=== PATIENT | female | born 1945 | race Caucasian/White ===

== ENCOUNTER → 2017-09-14 | Outpatient (CLI) | payer OTHER ==
[2017-09-14 12:35] LABS: BASO % 0.5 % (0.0-1.0); EOS # 0.3 10^3/uL (0.0-0.50); EOS % 4.2 % (0.0-3.0); HEMATOCRIT 37.8 % (36.0-47.0); HEMOGLOBIN 12.3 g/dl (12.0-15.5); IMMATURE GRANULOCYTE % 0.3 % (0-3.0); LYMPH # 2.5 10^3/uL (1.5-4.5); LYMPH % 32.4 % (24.0-44.0); MEAN CORPUSCULAR HEMOGLOBIN 30.1 pg (27.0-33.0); MEAN CORPUSCULAR HGB CONC 32.5 g/dl (32.0-36.5); MEAN CORPUSCULAR VOLUME 92.6 fl (80.0-96.0); MONO # 0.7 10^3/uL (0.0-0.8); MONO % 9.1 % (0.0-5.0); NEUTROPHILS # 4.2 10^3/uL (1.8-7.7); NEUTROPHILS % 53.5 % (36.0-66.0); PLATELET COUNT, AUTOMATED 261 10^3/uL (150-450); RED BLOOD COUNT 4.08 10^6/uL (4.00-5.40); RED CELL DISTRIBUTION WIDTH 12.5 % (11.5-14.5); WHITE BLOOD COUNT 7.8 10^3/uL (4.0-10.0)
== END ==
LOC: M ADAMS 10:21
DX: J20.9 Acute bronchitis, unspecified (principal)
CPT/HCPCS: 85025

== ENCOUNTER → 2019-07-08 | Outpatient (REF) | payer MEDICARE ==
[2019-07-08 12:55] LABS: ALBUMIN 3.8 GM/DL (3.2-5.2); ALT/SGPT 19 U/L (12-78); BILIRUBIN,TOTAL 0.5 MG/DL (0.2-1.0); BLOOD UREA NITROGEN 11 MG/DL (7-18); CARBON DIOXIDE LEVEL 29 MEQ/L (21-32); CHLORIDE LEVEL 104 MEQ/L (98-107); CHOLESTEROL LEVEL 197 MG/DL (<200); CHOLESTEROL RISK RATIO 3.862 (<5); CREATININE FOR GFR 0.57 MG/DL (0.55-1.30); GLOMERULAR FILTRATION RATE > 60.0 (>39); GLUCOSE, FASTING 104 MG/DL (70-100); HDL CHOLESTEROL 51 MG/DL (>40); LDL CHOLESTEROL 112 MG/DL (<100); NON-HDL-C 146 MG/DL; POTASSIUM SERUM 4.5 MEQ/L (3.5-5.1); SODIUM LEVEL 139 MEQ/L (136-145); TOTAL PROTEIN 7.3 GM/DL (6.4-8.2); TRIGLYCERIDES LEVEL 171 MG/DL (<150)
[2019-07-08 13:31] LABS: HEMOGLOBIN A1c 7.1 %
== END ==
LOC: M SFHCADAM 08:59
PROVIDERS: ATTEND Physician Assistant
DX: I10 Essential (primary) hypertension (principal); E78.2 Mixed hyperlipidemia; E11.9 Type 2 diabetes mellitus without complications

== ENCOUNTER → 2019-09-26 | Outpatient (REF) | payer MEDICARE ==
[2019-09-26 17:18] LABS: HEMATOCRIT 41.4 % (36.0-47.0); HEMOGLOBIN 13.4 g/dl (12.0-15.5); MEAN CORPUSCULAR HEMOGLOBIN 31.1 pg (27.0-33.0); MEAN CORPUSCULAR HGB CONC 32.4 g/dl (32.0-36.5); MEAN CORPUSCULAR VOLUME 96.1 fl (80.0-96.0); PLATELET COUNT, AUTOMATED 202 10^3/uL (150-450); RED BLOOD COUNT 4.31 10^6/uL (4.00-5.40)
[2019-09-26 18:05] LABS: ERYTHROCYTE SEDIMENTATION RATE 22 mm/hr (0-30)
[2019-09-29 18:14] LABS: ANA (HEP2) Negative (.); Lyme Disease IgG/IgM Antibodie <0.91 ISR (0.00-0.90); Lyme Disease IgM Ab Quantitati <0.80 index (0.00-0.79)
== END ==
LOC: M SFHCLACO 14:10
PROVIDERS: ATTEND Physician Assistant
DX: M19.042 Primary osteoarthritis, left hand (principal); M19.041 Primary osteoarthritis, right hand; Z79.899 Other long term (current) drug therapy

== ENCOUNTER → 2019-09-26 | Outpatient (CLI) | payer MEDICARE ==
[~2019-09-26] MED LIST: ACET160S3 PO; CALC1TAB26 PO; CINN500C15 PO; CO Q10CA PO; D31000TA2 PO; LISI-542 PO; MAGN400C2 PO; METF-817 PO; MULTCAP PO; NAPR-885 PO
--- NOTE | 2019-09-27 07:54 | REP ---
REASON: History of osteoarthritis. PRIORS: None. Bilateral exam was performed. Four views of the right hand show asymmetric intra-digital joint space narrowing, particularly affecting the distal interphalangeal joints of digits 3 and 4. There is marginal osteophytosis involving the DIP joints and again particularly digits 3 and 4. There is no periarticular osteopenia, and there are no marginal erosions. More mild and rather symmetric appearing intra-digital joint space narrowing is seen involving the proximal interphalangeal joints of digits 2 through 5 and the interphalangeal joint of digit 1. There is no evidence of an acute fracture. There are degenerative changes seen involving the 1st carpometacarpal joint on this hand exam. Four views of the left hand were obtained and show asymmetric intra-digital joint space narrowing, particularly affecting the DIP joints and particularly the DIP joints of digits 2 and 5. Asymmetric narrowing and osteophytosis is also seen involving the DIP joint of digit 4. There are no marginal erosions, and there is no periarticular osteopenia. There is no evidence of an acute fracture. Degenerative changes are seen involving the 1st carpometacarpal joint non this hand exam. IMPRESSION: Chronic changes, as described above. Electronically Signed by Eran Kwon DO 09/27/2019 09:12 A
== END ==
LOC: M ADAMS 14:10
PROVIDERS: ATTEND Physician Assistant
DX: M19.042 Primary osteoarthritis, left hand (principal); M19.041 Primary osteoarthritis, right hand; Z79.899 Other long term (current) drug therapy

== ENCOUNTER → 2019-11-29 | Outpatient (CLI) | payer MEDICARE | LOC: M LABSMTC 10:07 | PROVIDERS: ATTEND Anesthesiology | DX: Z01.812 Encounter for preprocedural laboratory examination (principal); Z20.828 Contact with and (suspected) exposure to other viral communicable diseases | CPT/HCPCS: C9803; U0003 ==

== ENCOUNTER 2019-12-04 06:30 | Day surgery (SDC) | payer MEDICARE ==
[~2019-12-04] VITALS: Ht 160 cm; Wt 75.2 kg
[2019-12-04] MEDS ORDERED: POVIDONE-IODINE 5% OPHTH PREP SOL 30ML As Ordered ONE (06:46)
[2019-12-04] MEDS ORDERED: DUOVISC (0.50ML VISCOAT/0.55ML PROVISC) OPHTH KIT As Ordered ONE (06:47)
[2019-12-04] MEDS ORDERED: BSS IRR 500ML/OMIDRIA 4ML IRR BAG (OR ONLY) (J1097 PER ML) As Ordered ONE (06:47)
[2019-12-04] MEDS ORDERED: CEFUROXIME 1MG/0.1ML INTRACAMERAL INJ As Ordered ONE (06:47)
[2019-12-04] MEDS ORDERED: PHENYLEPHRINE 2.5% OPHTH SOL 2ML OS ONE (07:00)
[2019-12-04] MEDS ORDERED: PROPARACAINE 0.5% OPHTH SOL 15ML OS ONE (07:00)
[2019-12-04] MEDS ORDERED: TROPICAMIDE 1% OPHTH SOLN 2ML OS ONE (07:00)
[2019-12-04] MEDS ORDERED: OFLOXACIN 0.3 % (OCUFLOX) OPTH SOL 5ML OS ONE (07:00)
[2019-12-04] MEDS ORDERED: PROPARACAINE 0.5% OPHTH SOL 15ML As Ordered ONE (07:03)
[2019-12-04] MEDS ORDERED: PHENYLEPHRINE 2.5% OPHTH SOL 2ML As Ordered ONE (07:03)
[2019-12-04] MEDS ORDERED: OFLOXACIN 0.3 % (OCUFLOX) OPTH SOL 5ML As Ordered ONE (07:03)
[2019-12-04] MEDS ORDERED: TROPICAMIDE 1% OPHTH SOLN 2ML As Ordered ONE (07:04)
[2019-12-04] MEDS ORDERED: MIDAZOLAM INJ 2MG/2ML VIAL (J2250 PER 1MG) As Ordered ONE (08:06)
[2019-12-04] MEDS ORDERED: fentaNYL 100 MCG/2 ML INJECTION (J3010) As Ordered ONE (08:06)
[2019-12-04] MEDS ORDERED: ONDANSETRON 4MG/2ML VIAL As Ordered ONE (08:23)
[2019-12-04 08:45] VITALS: BP 171/79
[2019-12-04] MEDS ORDERED: ONDANSETRON 4MG/2ML VIAL IV PRN (08:45)
== END 2019-12-04 09:50 | disposition home or self-care (01) ==
LOC: M SDC 06:30
PROVIDERS: ATTEND Ophthalmology
DX: H25.12 Age-related nuclear cataract, left eye (principal); E11.9 Type 2 diabetes mellitus without complications; Z79.84 Long term (current) use of oral hypoglycemic drugs; Z79.899 Other long term (current) drug therapy
CPT/HCPCS: 66984; J1097; J2250; J2405; J3010; V2632

== ENCOUNTER → 2019-12-06 | Outpatient (CLI) | payer MEDICARE | LOC: M LABSMTC 08:27 | PROVIDERS: ATTEND Anesthesiology | DX: Z01.812 Encounter for preprocedural laboratory examination (principal); Z20.828 Contact with and (suspected) exposure to other viral communicable diseases | CPT/HCPCS: C9803; U0003 ==

== ENCOUNTER 2019-12-11 10:13 | Day surgery (SDC) | payer MEDICARE ==
[~2019-12-11] VITALS: Ht 160 cm; Wt 72.6 kg
[~2019-12-11 10:13] MED LIST changes: +BSS IRR 500ML/OMIDRIA 4ML IRR BAG (OR ONLY) (J1097 PER ML) As Ordered ONE; +CEFUROXIME 1MG/0.1ML INTRACAMERAL INJ As Ordered ONE; +DUOVISC (0.50ML VISCOAT/0.55ML PROVISC) OPHTH KIT As Ordered ONE; +OFLOXACIN 0.3 % (OCUFLOX) OPTH SOL 5ML OD ONE; +PHENYLEPHRINE 2.5% OPHTH SOL 2ML OD ONE; +POVIDONE-IODINE 5% OPHTH PREP SOL 30ML As Ordered ONE; +PROPARACAINE 0.5% OPHTH SOL 15ML OD ONE; +TROPICAMIDE 1% OPHTH SOLN 2ML OD ONE
[2019-12-11] MEDS ORDERED: SCOPOLAMINE 1MG TRANSDERMAL PATCH As Ordered ONE (11:27)
[2019-12-11] MEDS ORDERED: fentaNYL 100 MCG/2 ML INJECTION (J3010) As Ordered ONE (11:52)
[2019-12-11] MEDS ORDERED: MIDAZOLAM INJ 2MG/2ML VIAL (J2250 PER 1MG) As Ordered ONE (11:52)
[2019-12-11 12:10] VITALS: BP 122/75
[2019-12-11] MEDS ORDERED: ONDANSETRON 4MG/2ML VIAL As Ordered ONE (12:33)
[2019-12-11] MEDS ORDERED: ONDANSETRON 4MG/2ML VIAL IV PRN (12:45)
[2019-12-11] MEDS ORDERED: SCOPOLAMINE 1MG TRANSDERMAL PATCH TOP ONE (13:00)
== END 2019-12-11 12:10 | disposition home or self-care (01) ==
LOC: M SDC 10:13
PROVIDERS: ATTEND Ophthalmology
DX: H25.11 Age-related nuclear cataract, right eye (principal); E11.9 Type 2 diabetes mellitus without complications; Z79.899 Other long term (current) drug therapy; Z88.8 Allergy status to other drugs, medicaments and biological substances
CPT/HCPCS: 66984; J1097; J2250; J2405; J3010; V2632

== ENCOUNTER → 2020-01-06 | Outpatient (REF) | payer MEDICARE ==
[~2020-01-06] MED LIST changes: -BSS IRR 500ML/OMIDRIA 4ML IRR BAG (OR ONLY) (J1097 PER ML) As Ordered ONE; -CEFUROXIME 1MG/0.1ML INTRACAMERAL INJ As Ordered ONE; -DUOVISC (0.50ML VISCOAT/0.55ML PROVISC) OPHTH KIT As Ordered ONE; -OFLOXACIN 0.3 % (OCUFLOX) OPTH SOL 5ML OD ONE; -PHENYLEPHRINE 2.5% OPHTH SOL 2ML OD ONE; -POVIDONE-IODINE 5% OPHTH PREP SOL 30ML As Ordered ONE; -PROPARACAINE 0.5% OPHTH SOL 15ML OD ONE; -TROPICAMIDE 1% OPHTH SOLN 2ML OD ONE
[2020-01-06 12:52] LABS: HEMOGLOBIN A1c 5.5 %
[2020-01-06 12:58] LABS: ALBUMIN 4.2 GM/DL (3.2-5.2); ALT/SGPT 17 U/L (12-78); BILIRUBIN,TOTAL 0.4 MG/DL (0.2-1.0); BLOOD UREA NITROGEN 28 MG/DL (7-18); CALCIUM LEVEL 9.5 MG/DL (8.8-10.2); CARBON DIOXIDE LEVEL 27 MEQ/L (21-32); CHLORIDE LEVEL 107 MEQ/L (98-107); CHOLESTEROL LEVEL 203 MG/DL (<200); CHOLESTEROL RISK RATIO 4.413 (<5); CREATININE FOR GFR 0.63 MG/DL (0.55-1.30); GLOMERULAR FILTRATION RATE > 60.0 (>39); GLUCOSE, FASTING 85 MG/DL (70-100); HDL CHOLESTEROL 46 MG/DL (>40); LDL CHOLESTEROL 124 MG/DL (<100); NON-HDL-C 157 MG/DL; POTASSIUM SERUM 4.6 MEQ/L (3.5-5.1); SODIUM LEVEL 140 MEQ/L (136-145); TOTAL PROTEIN 7.2 GM/DL (6.4-8.2); TRIGLYCERIDES LEVEL 163 MG/DL (<150)
== END ==
LOC: M SFHCADAM 08:04
PROVIDERS: ATTEND Physician Assistant
DX: I10 Essential (primary) hypertension (principal); E78.2 Mixed hyperlipidemia; E11.9 Type 2 diabetes mellitus without complications

== ENCOUNTER → 2020-07-20 | Outpatient (REF) | payer MEDICARE ==
[~2020-07-20] MED LIST changes: -LISI-542 PO; +LISI-898 PO
[2020-07-20 13:31] LABS: ALBUMIN 4.1 GM/DL (3.2-5.2); ALT/SGPT 17 U/L (12-78); BILIRUBIN,TOTAL 0.5 MG/DL (0.2-1.0); BLOOD UREA NITROGEN 21 MG/DL (7-18); CALCIUM LEVEL 9.2 MG/DL (8.8-10.2); CARBON DIOXIDE LEVEL 29 MEQ/L (21-32); CHLORIDE LEVEL 104 MEQ/L (98-107); CHOLESTEROL LEVEL 210 MG/DL (<200); CHOLESTEROL RISK RATIO 3.818 (<5); CREATININE FOR GFR 0.58 MG/DL (0.55-1.30); GLOMERULAR FILTRATION RATE > 60.0 (>39); GLUCOSE, FASTING 97 MG/DL (70-100); HDL CHOLESTEROL 55 MG/DL (>40); LDL CHOLESTEROL 119 MG/DL (<100); NON-HDL-C 155 MG/DL; POTASSIUM SERUM 5.2 MEQ/L (3.5-5.1); SODIUM LEVEL 136 MEQ/L (136-145); TOTAL PROTEIN 7.4 GM/DL (6.4-8.2); TRIGLYCERIDES LEVEL 181 MG/DL (<150)
== END ==
LOC: M SFHCADAM 07:59
PROVIDERS: ATTEND Physician Assistant
DX: I10 Essential (primary) hypertension (principal); E78.2 Mixed hyperlipidemia; E11.9 Type 2 diabetes mellitus without complications

== ENCOUNTER → 2021-01-18 | Outpatient (REF) | payer MEDICARE ==
[2021-01-18 13:08] LABS: ALBUMIN 4.1 GM/DL (3.2-5.2); ALT/SGPT 19 U/L (12-78); BILIRUBIN,TOTAL 0.5 MG/DL (0.2-1.0); BLOOD UREA NITROGEN 18 MG/DL (7-18); CALCIUM LEVEL 9.7 MG/DL (8.8-10.2); CARBON DIOXIDE LEVEL 29 MEQ/L (21-32); CHLORIDE LEVEL 105 MEQ/L (98-107); CHOLESTEROL LEVEL 225 MG/DL (<200); CHOLESTEROL RISK RATIO 4.591 (<5); CREATININE FOR GFR 0.58 MG/DL (0.55-1.30); GLOMERULAR FILTRATION RATE > 60.0 (>39); GLUCOSE, FASTING 106 MG/DL (70-100); HDL CHOLESTEROL 49 MG/DL (>40); LDL CHOLESTEROL 142 MG/DL (<100); NON-HDL-C 176 MG/DL; POTASSIUM SERUM 4.6 MEQ/L (3.5-5.1); SODIUM LEVEL 139 MEQ/L (136-145); TOTAL PROTEIN 7.6 GM/DL (6.4-8.2); TRIGLYCERIDES LEVEL 168 MG/DL (<150)
== END ==
LOC: M SFHCADAM 08:13
PROVIDERS: ATTEND Physician Assistant
DX: I10 Essential (primary) hypertension (principal); E78.2 Mixed hyperlipidemia; E11.9 Type 2 diabetes mellitus without complications

== ENCOUNTER → 2021-07-26 | Outpatient (CLI) | payer MEDICARE ==
[~2021-07-26] MED LIST changes: -D31000TA2 PO; -LISI-898 PO; +LISI5TAB11 PO; +VITA100093 PO
[2021-07-26 13:34] LABS: HEMOGLOBIN A1c 6.3 %
[2021-07-26 15:09] LABS: ALBUMIN 4.4 GM/DL (3.2-5.2); ALT/SGPT 20 U/L (12-78); BILIRUBIN,TOTAL 0.4 MG/DL (0.2-1.0); BLOOD UREA NITROGEN 15 MG/DL (7-18); CARBON DIOXIDE LEVEL 23 MEQ/L (21-32); CHLORIDE LEVEL 107 MEQ/L (98-107); CHOLESTEROL LEVEL 235 MG/DL (<200); CHOLESTEROL RISK RATIO 4.519 (<5); CREATININE FOR GFR 0.72 MG/DL (0.55-1.30); GLOMERULAR FILTRATION RATE > 60.0 (>39); GLUCOSE, FASTING 96 MG/DL (70-100); HDL CHOLESTEROL 52 MG/DL (>40); LDL CHOLESTEROL 130 MG/DL (<100); NON-HDL-C 183 MG/DL; SODIUM LEVEL 138 MEQ/L (136-145); TOTAL PROTEIN 8.2 GM/DL (6.4-8.2); TRIGLYCERIDES LEVEL 266 MG/DL (<150)
== END ==
LOC: M ADAMS 08:38
PROVIDERS: ATTEND Physician Assistant
DX: E11.9 Type 2 diabetes mellitus without complications (principal); I10 Essential (primary) hypertension; E78.2 Mixed hyperlipidemia

== ENCOUNTER → 2022-01-31 | Outpatient (REF) | payer MEDICARE | LOC: M SFHCADAM 07:50 | PROVIDERS: ATTEND Family Medicine | DX: E11.9 Type 2 diabetes mellitus without complications (principal) ==

== ENCOUNTER → 2022-02-01 | Outpatient (CLI) | payer MEDICARE ==
[2022-02-01 11:10] LABS: ALT/SGPT 16 U/L (7.0-40); BILIRUBIN,TOTAL 0.5 MG/DL (0.3-1.2); BLOOD UREA NITROGEN 24 MG/DL (9-23); CALCIUM LEVEL 9.2 MG/DL (8.3-10.6); CARBON DIOXIDE LEVEL 22 MMOL/L (20-31); CHLORIDE LEVEL 105 MMOL/L (98-107); CREATININE FOR GFR 0.56 MG/DL (0.55-1.30); GLOMERULAR FILTRATION RATE > 60.0 (>39); GLUCOSE, FASTING 100 MG/DL (74-106); POTASSIUM SERUM 4.9 MMOL/L (3.5-5.1); SODIUM LEVEL 139 MMOL/L (136-145); TOTAL PROTEIN 6.9 G/DL (5.7-8.2)
[2022-02-01 11:31] LABS: HEMOGLOBIN A1c 5.8 % (4.0-6.0)
== END ==
LOC: M PLALAB 08:25
PROVIDERS: ATTEND Family Medicine
DX: E11.9 Type 2 diabetes mellitus without complications (principal)

== ENCOUNTER → 2022-04-24 | Outpatient (REF) | payer MEDICARE ==
[2022-04-24 13:30] LABS: HEMOGLOBIN A1c 5.9 % (4.0-6.0)
[2022-04-24 13:47] LABS: ALKALINE PHOSPHATASE 60 U/L (46-116); ALT/SGPT 14 U/L (7.0-40); AST/SGOT < 8 U/L (<34); BILIRUBIN,TOTAL 0.7 MG/DL (0.3-1.2); BLOOD UREA NITROGEN 31 MG/DL (9-23); CALCIUM LEVEL 9.6 MG/DL (8.3-10.6); CARBON DIOXIDE LEVEL 25 MMOL/L (20-31); CHLORIDE LEVEL 103 MMOL/L (98-107); CREATININE FOR GFR 0.59 MG/DL (0.55-1.30); GLOMERULAR FILTRATION RATE > 60.0 (>39); GLUCOSE, FASTING 95 MG/DL (74-106); POTASSIUM SERUM 4.7 MMOL/L (3.5-5.1); SODIUM LEVEL 138 MMOL/L (136-145); TOTAL PROTEIN 7.2 G/DL (5.7-8.2)
== END ==
LOC: M SFHCADAM 08:10
PROVIDERS: ATTEND Family Medicine
DX: E11.9 Type 2 diabetes mellitus without complications (principal)

== ENCOUNTER → 2022-08-08 | Outpatient (REF) | payer MEDICARE | LOC: M SFHCADAM 07:33 | PROVIDERS: ATTEND Family Medicine | DX: E11.3311 Type 2 diabetes mellitus with moderate nonproliferative diabetic retinopathy with macular edema, right eye (principal) ==

== ENCOUNTER → 2023-03-26 | Outpatient (CLI) | payer MEDICARE | LOC: M ADAMS 14:21 | PROVIDERS: ATTEND Family Medicine | DX: M47.816 Spondylosis without myelopathy or radiculopathy, lumbar region (principal); M43.17 Spondylolisthesis, lumbosacral region; M46.97 Unspecified inflammatory spondylopathy, lumbosacral region ==

== ENCOUNTER → 2023-04-16 | Outpatient (REF) | payer MEDICARE | LOC: M LAB REF 16:28 | PROVIDERS: ATTEND Student in an Organized Health Care Education/Training Program | DX: R30.0 Dysuria (principal); B96.20 Unspecified Escherichia coli [E. coli] as the cause of diseases classified elsewhere ==

== ENCOUNTER → 2023-09-18 | Outpatient (REF) | payer MEDICARE ==
[2023-09-18 13:19] LABS: BASO % 0.8 % (0.0-1.0); EOS # 0.3 10^3/uL (0.0-0.5); HEMATOCRIT 38.2 % (36.0-47.0); HEMOGLOBIN 12.5 g/dl (12.0-15.5); LYMPH % 38.7 % (24.0-44.0); MEAN CORPUSCULAR HEMOGLOBIN 31.6 pg (27.0-33.0); MEAN CORPUSCULAR HGB CONC 32.7 g/dl (32.0-36.5); MEAN CORPUSCULAR VOLUME 96.7 fl (80.0-96.0); MONO # 0.5 10^3/uL (0.0-0.8); MONO % 9.9 % (2.0-8.0); NEUTROPHILS # 2.4 10^3/uL (1.5-8.5); NEUTROPHILS % 45.4 % (36.0-66.0); PLATELET COUNT, AUTOMATED 191 10^3/uL (150-450); RED BLOOD COUNT 3.95 10^6/uL (4.00-5.40); WHITE BLOOD COUNT 5.3 10^3/uL (4.0-10.0)
[2023-09-18 13:24] LABS: ALKALINE PHOSPHATASE 62 U/L (46-116); ALT/SGPT 16 U/L (7.0-40); AST/SGOT 10 U/L (<34); BILIRUBIN,TOTAL 0.5 MG/DL (0.3-1.2); BLOOD UREA NITROGEN 24 MG/DL (9-23); CALCIUM LEVEL 9.5 MG/DL (8.3-10.6); CARBON DIOXIDE LEVEL 26 MMOL/L (20-31); CHLORIDE LEVEL 106 MMOL/L (98-107); CHOLESTEROL LEVEL 206 MG/DL (<200); CHOLESTEROL RISK RATIO 4.43 (<5); CREATININE FOR GFR 0.55 MG/DL (0.55-1.30); GLOMERULAR FILTRATION RATE > 60.0 (>39); GLUCOSE, FASTING 89 MG/DL (74-106); HDL CHOLESTEROL 46.4 MG/DL (>40); LDL CHOLESTEROL 122.6 MG/DL (<100); NON-HDL-C 159.6 MG/DL; POTASSIUM SERUM 4.3 MMOL/L (3.5-5.1); SODIUM LEVEL 139 MMOL/L (136-145); TOTAL PROTEIN 7.1 G/DL (5.7-8.2); TRIGLYCERIDES LEVEL 185 MG/DL (<150)
[2023-09-18 13:46] LABS: HEMOGLOBIN A1c 5.6 % (4.0-6.0)
== END ==
LOC: M SFHCADAM 08:41
PROVIDERS: ATTEND Family Medicine
DX: Z00.00 Encounter for general adult medical examination without abnormal findings (principal); E11.9 Type 2 diabetes mellitus without complications

== ENCOUNTER 2023-11-05 11:48 | Inpatient (IN) | payer MEDICARE ==
[~2023-11-05] VITALS: Ht 160 cm; Wt 72.4 kg
[2023-11-05 14:14] LABS: BASO % 0.4 % (0.0-1.0); EOS # 0.1 10^3/uL (0.0-0.5); EOS % 0.8 % (0.0-3.0); HEMATOCRIT 31.3 % (36.0-47.0); LYMPH # 2.6 10^3/uL (1.5-5.0); LYMPH % 27.7 % (24.0-44.0); MEAN CORPUSCULAR HEMOGLOBIN 31.2 pg (27.0-33.0); MEAN CORPUSCULAR HGB CONC 31.9 g/dl (32.0-36.5); MEAN CORPUSCULAR VOLUME 97.5 fl (80.0-96.0); MONO # 0.8 10^3/uL (0.0-0.8); MONO % 8.5 % (2.0-8.0); NEUTROPHILS # 5.8 10^3/uL (1.5-8.5); NEUTROPHILS % 62.3 % (36.0-66.0); PLATELET COUNT, AUTOMATED 222 10^3/uL (150-450); RED BLOOD COUNT 3.21 10^6/uL (4.00-5.40); WHITE BLOOD COUNT 9.3 10^3/uL (4.0-10.0)
[2023-11-05 14:27] LABS: INR 1.07; PROTHROMBIN TIME 13.6 SECONDS (12.5-14.5)
[2023-11-05] MEDS ORDERED: ISOVUE-370 76% 100ML VIAL As Ordered ONE (14:40)
[2023-11-05] MEDS: NS 500 ML IV ONE (14:41)
[2023-11-05] MEDS: PANTOPRAZOLE 40MG VIAL IV ONE (14:41)
[2023-11-05 14:45] LABS: LIPASE 23 U/L (12-53)
[2023-11-05 14:46] LABS: CPK CREATINE PHOSPHOKINASE 22 U/L (34-145)
[2023-11-05 14:47] LABS: ALBUMIN 3.9 G/DL (3.2-5.2); ALKALINE PHOSPHATASE 51 U/L (46-116); ALT/SGPT 15 U/L (7.0-40); AST/SGOT 9 U/L (<34); BILIRUBIN,DIRECT 0.1 MG/DL (<0.4); BILIRUBIN,TOTAL 0.5 MG/DL (0.3-1.2); BLOOD UREA NITROGEN 45 MG/DL (9-23); CALCIUM LEVEL 9.6 MG/DL (8.3-10.6); CARBON DIOXIDE LEVEL 27 MMOL/L (20-31); CHLORIDE LEVEL 106 MMOL/L (98-107); CK-MB VALUE MASS < 1.0 NG/ML (<3.6); CREATININE FOR GFR 0.57 MG/DL (0.55-1.30); GLOMERULAR FILTRATION RATE > 60.0 (>39); GLUCOSE, FASTING 114 MG/DL (74-106); MB/CK RELATIVE INDEX 4.54 (< OR =4); POTASSIUM SERUM 4.1 MMOL/L (3.5-5.1); SODIUM LEVEL 137 MMOL/L (136-145)
[2023-11-05 14:49] LABS: THYROID STIMULATING HORMONE 0.695 uIU/ML (0.55-4.78)
[2023-11-05] MEDS: NS 1,000 ML IV SCH (16:45)
[2023-11-05] MEDS ORDERED: PANTOPRAZOLE 40MG TAB (PROTONIX) PO SCH (17:00)
[2023-11-05] MEDS ORDERED: MOM 30ML SUSPENSION UDC PO PRN (17:00)
[2023-11-05] MEDS: LR 1,000 ML IV SCH (17:25)
[2023-11-05] MEDS: cefTRIAXone SOD 1 GM in D5W MINI-BAG PLUS 50 ML IV SCH (18:36)
[2023-11-05] MEDS: PANTOPRAZOLE 40MG VIAL IV SCH (18:36)
[2023-11-05] MEDS ORDERED: GLUCAGON INJ 1MG VIAL SC PRN (18:45)
[2023-11-05] MEDS ORDERED: DEXTROSE 50% 50ML SYRINGE IV PRN (18:45)
[2023-11-05] MEDS ORDERED: GLUCOSE 4 GM CHEW PO PRN (18:45)
[2023-11-05 19:02] VITALS: BP 156/65; TEMP 98; O2SAT 97
[2023-11-05 19:56] VITALS: BP 140/65; TEMP 97.3; O2SAT 99
[2023-11-05] MEDS ORDERED: ACET650T3 PO (20:26)
[2023-11-05] MEDS ORDERED: LISI20TA33 PO (20:26)
[2023-11-05] MEDS ORDERED: MULT-90 PO (20:31)
[2023-11-05] MEDS ORDERED: NAPR220C14 PO (20:31)
[2023-11-05] MEDS ORDERED: METF-838 PO (20:34)
[2023-11-05] MEDS ORDERED: HOME MED LIST COMPLETE! XX SCH (20:35)
[2023-11-05] MEDS: INSULIN LISPRO (NovoLOG) PER UNIT SC SCH (21:12)
[2023-11-06] VITALS: BP 114/54; TEMP 97.7; O2SAT 97
[2023-11-06 04:00] VITALS: BP 119/57; TEMP 97.4; O2SAT 98
[2023-11-06] MEDS: ACETAMINOPHEN TAB 650MG DOSE (2X325MG) PO PRN (06:53)
[2023-11-06 07:23] LABS: HEMATOCRIT 25.5 % (36.0-47.0); HEMOGLOBIN 8.5 g/dl (12.0-15.5); MEAN CORPUSCULAR HEMOGLOBIN 32.4 pg (27.0-33.0); MEAN CORPUSCULAR HGB CONC 33.3 g/dl (32.0-36.5); MEAN CORPUSCULAR VOLUME 97.3 fl (80.0-96.0); PLATELET COUNT, AUTOMATED 196 10^3/uL (150-450); RED BLOOD COUNT 2.62 10^6/uL (4.00-5.40); WHITE BLOOD COUNT 6.8 10^3/uL (4.0-10.0)
[2023-11-06] MEDS: INSULIN LISPRO (NovoLOG) PER UNIT SC SCH (07:30)
[2023-11-06 08:02] LABS: BLOOD UREA NITROGEN 24 MG/DL (9-23); CALCIUM LEVEL 8.6 MG/DL (8.3-10.6); CARBON DIOXIDE LEVEL 26 MMOL/L (20-31); CHLORIDE LEVEL 111 MMOL/L (98-107); CREATININE FOR GFR 0.55 MG/DL (0.55-1.30); GLOMERULAR FILTRATION RATE > 60.0 (>39); GLUCOSE, FASTING 105 MG/DL (74-106); POTASSIUM SERUM 4.4 MMOL/L (3.5-5.1); SODIUM LEVEL 140 MMOL/L (136-145)
[2023-11-06 08:19] VITALS: BP 156/67; TEMP 97.4; O2SAT 98
[2023-11-06 10:38] LABS: IRON (FE) 93 UG/DL (50-170)
[2023-11-06 10:39] LABS: PERCENT SATURATION 32.7 % (13.2-45.0); TOTAL IRON BINDING CAPACITY 284 UG/DL (250-425)
[2023-11-06 10:41] LABS: FERRITIN 36.4 NG/ML (7.3-270.7); TOTAL 25(OH) VITAMIN D 59.6 NG/ML (20.0-100.0); VITAMIN B12 LEVEL 552 PG/ML (211-911)
[2023-11-06 10:44] LABS: FOLATE > 24.00 NG/ML (>5.4)
[2023-11-06 12:19] LABS: HEMATOCRIT 29.3 % (36.0-47.0); HEMOGLOBIN 9.5 g/dl (12.0-15.5)
[2023-11-06 12:24] VITALS: BP 134/63; TEMP 97; O2SAT 98
[2023-11-06 16:14] VITALS: BP 150/66; TEMP 97.1; O2SAT 97
[2023-11-06 20:45] VITALS: BP 140/64; TEMP 96.9; O2SAT 98
[2023-11-07 04:00] VITALS: BP 146/63; TEMP 97.5; O2SAT 98
[2023-11-07] MEDS ORDERED: CAPSAICIN 0.025% CR 60 GM TOP PRN (05:05)
[2023-11-07] MEDS: LIDOCAINE 5% (LIDODERM) PATCH TD ONE (05:26)
[2023-11-07] MEDS: ACETAMINOPHEN TAB 650MG DOSE (2X325MG) PO SCH (06:00)
[2023-11-07 06:17] LABS: BASO # 0.1 10^3/uL (0.0-0.2); EOS # 0.3 10^3/uL (0.0-0.5); EOS % 5.2 % (0.0-3.0); HEMOGLOBIN 8.6 g/dl (12.0-15.5); MEAN CORPUSCULAR HEMOGLOBIN 31.5 pg (27.0-33.0); MEAN CORPUSCULAR HGB CONC 31.9 g/dl (32.0-36.5); MEAN CORPUSCULAR VOLUME 98.9 fl (80.0-96.0); MONO # 0.6 10^3/uL (0.0-0.8); MONO % 9.5 % (2.0-8.0); NEUTROPHILS % 49.8 % (36.0-66.0); PLATELET COUNT, AUTOMATED 196 10^3/uL (150-450); RED BLOOD COUNT 2.73 10^6/uL (4.00-5.40)
[2023-11-07 06:39] LABS: BLOOD UREA NITROGEN 11 MG/DL (9-23); CALCIUM LEVEL 9.1 MG/DL (8.3-10.6); CARBON DIOXIDE LEVEL 24 MMOL/L (20-31); CHLORIDE LEVEL 112 MMOL/L (98-107); CREATININE FOR GFR 0.51 MG/DL (0.55-1.30); GLOMERULAR FILTRATION RATE > 60.0 (>39); GLUCOSE, FASTING 103 MG/DL (74-106); MAGNESIUM LEVEL 1.9 MG/DL (1.8-2.4); POTASSIUM SERUM 3.9 MMOL/L (3.5-5.1); SODIUM LEVEL 143 MMOL/L (136-145)
[2023-11-07 07:27] VITALS: BP 144/86; TEMP 97.8; O2SAT 99
[2023-11-07 15:54] VITALS: BP 110/56; TEMP 97.4; O2SAT 100
[2023-11-07 19:47] VITALS: BP 109/53; TEMP 97.6; O2SAT 98
[2023-11-08 03:28] VITALS: BP 135/64; TEMP 97.5; O2SAT 97
[2023-11-08 06:31] LABS: BASO # 0.1 10^3/uL (0.0-0.2); BASO % 0.9 % (0.0-1.0); EOS # 0.3 10^3/uL (0.0-0.5); EOS % 5.3 % (0.0-3.0); HEMATOCRIT 24.6 % (36.0-47.0); LYMPH % 36.5 % (24.0-44.0); MEAN CORPUSCULAR HEMOGLOBIN 32.4 pg (27.0-33.0); MEAN CORPUSCULAR HGB CONC 32.5 g/dl (32.0-36.5); MEAN CORPUSCULAR VOLUME 99.6 fl (80.0-96.0); MONO # 0.5 10^3/uL (0.0-0.8); MONO % 9.4 % (2.0-8.0); NEUTROPHILS # 2.6 10^3/uL (1.5-8.5); NEUTROPHILS % 47.5 % (36.0-66.0); PLATELET COUNT, AUTOMATED 206 10^3/uL (150-450); RED BLOOD COUNT 2.47 10^6/uL (4.00-5.40); WHITE BLOOD COUNT 5.5 10^3/uL (4.0-10.0)
[2023-11-08 06:58] LABS: BLOOD UREA NITROGEN 13 MG/DL (9-23); CARBON DIOXIDE LEVEL 26 MMOL/L (20-31); CHLORIDE LEVEL 109 MMOL/L (98-107); CREATININE FOR GFR 0.62 MG/DL (0.55-1.30); GLOMERULAR FILTRATION RATE > 60.0 (>39); GLUCOSE, FASTING 125 MG/DL (74-106); MAGNESIUM LEVEL 1.9 MG/DL (1.8-2.4); POTASSIUM SERUM 3.7 MMOL/L (3.5-5.1); SODIUM LEVEL 140 MMOL/L (136-145)
[2023-11-08 07:48] VITALS: BP 148/65; TEMP 98; O2SAT 100
[2023-11-08] MEDS: PANTOPRAZOLE 40MG TAB (PROTONIX) PO SCH (08:22)
[2023-11-08 11:42] VITALS: BP_SYST 146; BP_SYST 148; BP_SYST 164; BP_DIAS 63; BP_DIAS 65; BP_DIAS 69
[2023-11-08 11:47] VITALS: BP 148/64; TEMP 97; O2SAT 100
[2023-11-08] MEDS ORDERED: CEFD300CAP PO (11:55)
[2023-11-08] MEDS ORDERED: CELE100C PO (11:55)
[2023-11-08] MEDS: CEFDINIR 300 MG CAP (OMNICEF) PO SCH (12:07)
[2023-11-08 12:21] LABS: HEMOGLOBIN 8.5 g/dl (12.0-15.5); MEAN CORPUSCULAR HEMOGLOBIN 32.4 pg (27.0-33.0); MEAN CORPUSCULAR HGB CONC 32.7 g/dl (32.0-36.5); MEAN CORPUSCULAR VOLUME 99.2 fl (80.0-96.0); PLATELET COUNT, AUTOMATED 224 10^3/uL (150-450); RED BLOOD COUNT 2.62 10^6/uL (4.00-5.40); WHITE BLOOD COUNT 6.4 10^3/uL (4.0-10.0)
== END 2023-11-08 14:35 | disposition home or self-care (01) | DRG 690 ==
LOC: EDBD 11:48 → M ED 11:48 → M ED INP 16:59 → M PCU 18:52
PROVIDERS: ADMIT Internal Medicine; ATTEND Internal Medicine
DX: N30.90 Cystitis, unspecified without hematuria (principal); K92.0 Hematemesis; R29.6 Repeated falls; I10 Essential (primary) hypertension; E78.5 Hyperlipidemia, unspecified; R42 Dizziness and giddiness; E11.9 Type 2 diabetes mellitus without complications; M19.90 Unspecified osteoarthritis, unspecified site; I95.1 Orthostatic hypotension; D64.9 Anemia, unspecified; Z66 Do not resuscitate; Z79.84 Long term (current) use of oral hypoglycemic drugs; Z79.899 Other long term (current) drug therapy; Z88.8 Allergy status to other drugs, medicaments and biological substances

== ENCOUNTER → 2023-12-12 | Outpatient (REF) | payer MEDICARE ==
[~2023-12-12] MED LIST changes: +ACET650T3 PO; +CEFD300CAP PO; +CELE100C PO; +LISI20TA33 PO; +METF-838 PO; +MULT-90 PO; +NAPR220C14 PO
[2023-12-12 13:13] LABS: BASO # 0.1 10^3/uL (0.0-0.2); EOS # 0.3 10^3/uL (0.0-0.5); EOS % 4.2 % (0.0-3.0); HEMATOCRIT 36.7 % (36.0-47.0); HEMOGLOBIN 11.5 g/dl (12.0-15.5); LYMPH # 2.3 10^3/uL (1.5-5.0); MEAN CORPUSCULAR HEMOGLOBIN 31.2 pg (27.0-33.0); MEAN CORPUSCULAR HGB CONC 31.3 g/dl (32.0-36.5); MEAN CORPUSCULAR VOLUME 99.5 fl (80.0-96.0); MONO # 0.6 10^3/uL (0.0-0.8); MONO % 10.3 % (2.0-8.0); NEUTROPHILS # 2.7 10^3/uL (1.5-8.5); NEUTROPHILS % 46.3 % (36.0-66.0); PLATELET COUNT, AUTOMATED 308 10^3/uL (150-450); RED BLOOD COUNT 3.69 10^6/uL (4.00-5.40); WHITE BLOOD COUNT 5.9 10^3/uL (4.0-10.0)
== END ==
LOC: M SFHCADAM 08:43
PROVIDERS: ATTEND Family Medicine
DX: K92.0 Hematemesis (principal)

== ENCOUNTER → 2024-01-28 | Outpatient (REF) | payer MEDICARE ==
[~2024-01-28] MED LIST changes: +METF-1156 PO; -METF-817 PO
[2024-01-28 14:48] LABS: BASO # 0.1 10^3/uL (0.0-0.2); BASO % 0.9 % (0.0-1.0); EOS # 0.2 10^3/uL (0.0-0.5); EOS % 3.1 % (0.0-3.0); HEMOGLOBIN 13.6 g/dl (12.0-15.5); LYMPH # 2.4 10^3/uL (1.5-5.0); LYMPH % 35.7 % (24.0-44.0); MEAN CORPUSCULAR HEMOGLOBIN 29.6 pg (27.0-33.0); MEAN CORPUSCULAR HGB CONC 30.9 g/dl (32.0-36.5); MEAN CORPUSCULAR VOLUME 95.7 fl (80.0-96.0); MONO # 0.7 10^3/uL (0.0-0.8); MONO % 9.9 % (2.0-8.0); NEUTROPHILS # 3.4 10^3/uL (1.5-8.5); NEUTROPHILS % 50.3 % (36.0-66.0); PLATELET COUNT, AUTOMATED 240 10^3/uL (150-450); WHITE BLOOD COUNT 6.7 10^3/uL (4.0-10.0)
== END ==
LOC: M SFHCADAM 08:46
PROVIDERS: ATTEND Family Medicine
DX: Z87.19 Personal history of other diseases of the digestive system (principal)

== ENCOUNTER 2024-02-05 15:01 | Emergency (ER) | payer MEDICARE ==
[~2024-02-05] VITALS: Ht 160 cm; Wt 69.7 kg
[2024-02-05] MEDS ORDERED: VALA1TAB5 (16:00)
[2024-02-05] MEDS ORDERED: ISOVUE-370 76% 100ML VIAL As Ordered ONE (17:40)
[2024-02-05 17:53] LABS: HEMATOCRIT 39.6 % (36.0-47.0); HEMOGLOBIN 13.1 g/dl (12.0-15.5); MEAN CORPUSCULAR HEMOGLOBIN 29.6 pg (27.0-33.0); MEAN CORPUSCULAR HGB CONC 33.1 g/dl (32.0-36.5); MEAN CORPUSCULAR VOLUME 89.4 fl (80.0-96.0); PLATELET COUNT, AUTOMATED 230 10^3/uL (150-450); RED BLOOD COUNT 4.43 10^6/uL (4.00-5.40); WHITE BLOOD COUNT 6.8 10^3/uL (4.0-10.0)
[2024-02-05 18:01] LABS: ERYTHROCYTE SEDIMENTATION RATE 56 mm/hr (0-30)
[2024-02-05] MEDS: ONDANSETRON 4MG ORAL DISINTEGRATING TAB PO ONE (18:14)
[2024-02-05] MEDS: ACETAMINOPHEN 325 MG TAB PO ONE (18:38)
[2024-02-05 18:55] LABS: ATYPICAL LYMPH 17 % (0-5); EOSINOPHILS 2 % (0-3); LYMPHOCYTES 23 % (16-44); MONOCYTES 12 % (0-5); NEUTROPHILS 46 % (28-66); PLATELET ESTIMATE NORMAL (NORMAL)
[2024-02-05] MEDS: cefTRIAXone SOD 2 GM in DEXTROSE 5% (D5W) ADV/MINI-BAG 50 ML IV ONE (19:22)
[2024-02-05] MEDS: TETRACAINE 0.5% OPHTH SOLN 4ML OS ONE (20:10)
[2024-02-05 20:43] VITALS: TEMP 98
[2024-02-05] MEDS: FLUORESCEIN OPHTH 1MG STRIP OS ONE (21:05)
[2024-02-05] MEDS ORDERED: ERYT5OIN25 OP (21:19)
[2024-02-05] MEDS ORDERED: ERYTHROMYCIN 2 % GEL 30GM TOP SCH (21:20)
[2024-02-05 21:30] VITALS: BP 151/70; O2SAT 97
[2024-02-05] MEDS: ERYTHROMYCIN OPHTH OINT OS ONE (21:46)
[2024-02-05] MEDS ORDERED: ONDA-282 PO (21:48)
== END 2024-02-05 21:52 | disposition home or self-care (01) ==
LOC: M ED 15:01
DX: H10.32 Unspecified acute conjunctivitis, left eye (principal); E11.9 Type 2 diabetes mellitus without complications; I10 Essential (primary) hypertension; Z88.8 Allergy status to other drugs, medicaments and biological substances; Z79.1 Long term (current) use of non-steroidal anti-inflammatories (NSAID); Z79.2 Long term (current) use of antibiotics; Z79.84 Long term (current) use of oral hypoglycemic drugs; Z79.810 Long term (current) use of selective estrogen receptor modulators (SERMs); Z79.899 Other long term (current) drug therapy
CPT/HCPCS: 70487; 80047; 83605; 85025; 85652; 86140; 87040; 96365; 99284; J0696; Q9967

== ENCOUNTER → 2024-02-20 | Outpatient (REF) | payer MEDICARE ==
[~2024-02-20] MED LIST changes: +ERYT5OIN25 OP; +ONDA-282 PO; +VALA1TAB5
[2024-02-20 14:17] LABS: BASO # 0.1 10^3/uL (0.0-0.2); BASO % 0.7 % (0.0-1.0); EOS # 0.1 10^3/uL (0.0-0.5); EOS % 1.5 % (0.0-3.0); HEMATOCRIT 41.7 % (36.0-47.0); HEMOGLOBIN 13.7 g/dl (12.0-15.5); LYMPH # 2.4 10^3/uL (1.5-5.0); LYMPH % 30.1 % (24.0-44.0); MEAN CORPUSCULAR HGB CONC 32.9 g/dl (32.0-36.5); MEAN CORPUSCULAR VOLUME 91.2 fl (80.0-96.0); MONO # 0.7 10^3/uL (0.0-0.8); MONO % 8.5 % (2.0-8.0); NEUTROPHILS # 4.8 10^3/uL (1.5-8.5); PLATELET COUNT, AUTOMATED 271 10^3/uL (150-450); RED BLOOD COUNT 4.57 10^6/uL (4.00-5.40); WHITE BLOOD COUNT 8.1 10^3/uL (4.0-10.0)
[2024-02-20 14:25] LABS: ERYTHROCYTE SEDIMENTATION RATE 39 mm/hr (0-30)
[2024-02-20 14:44] LABS: C REACTIVE PROTEIN QUANTITATIV < 0.50 MG/DL (<1.0)
[2024-02-20 14:45] LABS: ALBUMIN 3.6 G/DL (3.2-5.2); ALKALINE PHOSPHATASE 62 U/L (35-104); ALT/SGPT 17 U/L (7.0-40); AST/SGOT 12 U/L (<34); BILIRUBIN,TOTAL 0.4 MG/DL (0.3-1.2); BLOOD UREA NITROGEN 14 MG/DL (9-23); CARBON DIOXIDE LEVEL 26 MMOL/L (20-31); CHLORIDE LEVEL 104 MMOL/L (98-107); CREATININE FOR GFR 0.64 MG/DL (0.55-1.30); GLOMERULAR FILTRATION RATE > 60.0 (>39); GLUCOSE, FASTING 125 MG/DL (74-106); POTASSIUM SERUM 3.6 MMOL/L (3.5-5.1); SODIUM LEVEL 143 MMOL/L (136-145); TOTAL PROTEIN 7.6 G/DL (5.7-8.2)
== END ==
LOC: M SFHCADAM 09:53
PROVIDERS: ATTEND Family Medicine
DX: B02.30 Zoster ocular disease, unspecified (principal); R11.2 Nausea with vomiting, unspecified

== ENCOUNTER → 2024-06-23 | Outpatient (REF) | payer MEDICARE ==
[2024-06-23 13:39] LABS: HEMOGLOBIN A1c 5.9 % (4.0-6.0)
[2024-06-23 13:49] LABS: ALBUMIN 3.9 G/DL (3.2-5.2); ALKALINE PHOSPHATASE 65 U/L (35-104); ALT/SGPT 14 U/L (7.0-40); AST/SGOT 18 U/L (<34); BILIRUBIN,TOTAL 0.4 MG/DL (0.3-1.2); BLOOD UREA NITROGEN 15 MG/DL (9-23); CALCIUM LEVEL 9.3 MG/DL (8.3-10.6); CARBON DIOXIDE LEVEL 28 MMOL/L (20-31); CHLORIDE LEVEL 105 MMOL/L (98-107); CREATININE FOR GFR 0.57 MG/DL (0.55-1.30); GLOMERULAR FILTRATION RATE > 90.0 (>39); GLUCOSE, FASTING 104 MG/DL (74-106); POTASSIUM SERUM 4.4 MMOL/L (3.5-5.1); SODIUM LEVEL 143 MMOL/L (136-145); TOTAL PROTEIN 7.4 G/DL (5.7-8.2)
== END ==
LOC: M SFHCADAM 09:11
PROVIDERS: ATTEND Family Medicine
DX: E11.9 Type 2 diabetes mellitus without complications (principal)

== ENCOUNTER → 2024-09-30 | Outpatient (REF) | payer MEDICARE | LOC: M SFHCADAM 08:39 | PROVIDERS: ATTEND Family Medicine | DX: Z53.9 Procedure and treatment not carried out, unspecified reason (principal); Z87.19 Personal history of other diseases of the digestive system; E78.2 Mixed hyperlipidemia ==

== ENCOUNTER → 2024-10-01 | Outpatient (REF) | payer MEDICARE ==
[2024-10-01 12:23] LABS: BASO # 0.1 10^3/uL (0.0-0.2); BASO % 0.7 % (0.0-1.0); EOS # 0.3 10^3/uL (0.0-0.5); EOS % 3.8 % (0.0-3.0); LYMPH # 2.4 10^3/uL (1.5-5.0); LYMPH % 34.0 % (24.0-44.0); MONO # 0.6 10^3/uL (0.0-0.8); MONO % 8.6 % (2.0-8.0); NEUTROPHILS # 3.8 10^3/uL (1.5-8.5); NEUTROPHILS % 52.5 % (36.0-66.0); PLATELET COUNT, AUTOMATED 204 10^3/uL (150-450)
[2024-10-01 12:47] LABS: ESTIMATED AVERAGE GLUCOSE 140.0 MG/DL (60-110)
[2024-10-01 14:40] LABS: ALT/SGPT 14 U/L (7.0-40); AST/SGOT 18 U/L (<34); CALCIUM LEVEL 9.1 MG/DL (8.3-10.6); CARBON DIOXIDE LEVEL 22 MMOL/L (20-31); CHLORIDE LEVEL 100 MMOL/L (98-107); CHOLESTEROL LEVEL 195 MG/DL (<200); CHOLESTEROL RISK RATIO 3.70 (<5); CREATININE FOR GFR 0.57 MG/DL (0.55-1.30); GLOMERULAR FILTRATION RATE > 90.0 (>39); LDL CHOLESTEROL 102.1 MG/DL (<100); NON-HDL-C 142.3 MG/DL; POTASSIUM SERUM 4.2 MMOL/L (3.5-5.1); SODIUM LEVEL 139 MMOL/L (136-145); TRIGLYCERIDES LEVEL 201 MG/DL (<150)
== END ==
LOC: M SFHCADAM 08:07
PROVIDERS: ATTEND Family Medicine
DX: E78.2 Mixed hyperlipidemia (principal); Z87.19 Personal history of other diseases of the digestive system; E11.9 Type 2 diabetes mellitus without complications